=== PATIENT | female | born 1980 | race African-American/Black ===

== ENCOUNTER 2017-06-12 15:29 | Outpatient (CLI) | payer BC, MEDICAID ==
--- NOTE | 2017-06-12 16:21 | MMO ---
BILATERAL SCREENING MAMMOGRAM: INDICATION: Baseline exam. COMPARISON: None. FINDINGS: Interpretation of the exam was assisted with computer aided detection. The breast parenchyma is heterogeneously dense which limits the sensitivity of mammography. Coarse benign-appearing calcifications are present within the right breast. There is a small focal asymmetry seen within the right breast 9 o'clock position, middle depth, most conspicuous on the CC projection. No suspicious abnormality is seen of the left breast. IMPRESSION: BI-RADS category 0 - incomplete evaluation - need for additional evaluation. There is focal asymmetr y seen within the 9 o'clock position of the right mid breast in the CC projection predominantly. Rec ommend spot magnification compression view. BIRADS 0: Incomplete: Need Additional Imaging Evaluation and/or Prior Mammograms for Comparison POS: [facility]
== END 2017-06-12 15:30 | disposition home or self-care (01) ==
LOC: SCSMAMMO 15:29
PROVIDERS: ATTEND Family Medicine
DX: Z12.31 Encounter for screening mammogram for malignant neoplasm of breast (principal); N64.89 Other specified disorders of breast
CPT/HCPCS: 77067

== ENCOUNTER 2017-10-20 11:26 | Outpatient (CLI) | payer MEDICAID | END 2017-10-20 11:27 | disposition home or self-care (01) | LOC: BICMAMMO 11:26 | PROVIDERS: ATTEND Family Medicine | DX: R92.2 Inconclusive mammogram (principal) | CPT/HCPCS: G0279 ==

== ENCOUNTER 2019-06-30 18:28 | Emergency (ER) | payer OTHER, SELFPAY ==
[2019-06-30 19:23] LABS: Bacteria/HPF None Seen HPF (None Seen); Bilirubin Negative (Negative); Blood, Urine 2+ (Negative); Clarity Clear (Clear); Glucose, Urine (Dipstick) Normal (Negative); Leukocyte Negative Leu/uL (Negative); Nitrite Negative (Negative); Protein, Urine (Dipstick) Negative (Neg-Trace); Squamous Epithelial None Seen HPF (0-3); Urobilinogen Normal mg/dL (Less than 2); WBC/HPF 0-3 HPF (0-3)
[2019-06-30 19:59] LABS: #Basophils 0.1 thou/uL (0.0-0.2); #Eosinphils 0.1 thou/uL (0.0-0.7); #Lymphocytes 3.7 thou/uL (1.20-3.40); #Monocytes 0.7 thou/uL (0.11-0.59); #Neutrophils 4.3 thou/uL (1.40-6.50); %Basophils 1.3 % (0.0-1.0); %Eosinophils 0.8 % (0.0-10.0); %Lymphocytes 42.1 % (21.0-51.0); %Monocytes 7.5 % (0.0-10.0); %Neutrophils 48.3 % (42.0-75.0); Hemoglobin 12.3 g/dL (12.0-16.0); Mean Corpuscular HGB CONC 32.7 g/dL (32.0-36.0); Mean Corpuscular Hemoglobin 28.6 pg (27.0-31.0); Mean Corpuscular Volume 87.4 fL (78.0-98.0); Mean Platelet Volume 9.2 fL (7.4-10.4); Platelet Count 253 thou/uL (130-400); White Blood Cell (WBC) Count 8.8 thou/uL (4.8-10.8)
[2019-06-30 20:39] LABS: BHCG - Serum Negative (NEGATIVE); Pregs Control Background? CLEAR/WHITE (CLR/WHITE); Pregs Control Bar Appear? YES (CONTROL BAR)
[2019-06-30] MEDS ORDERED: Ketorolac Tromethamine 60 MG/2 ML VIAL ONE (20:41)
--- NOTE | 2019-06-30 21:43 | ULT ---
TRANSABDOMINAL TRANSVAGINAL PELVIC ULTRASOUND DATE:: 06/30/2019 9:07 PM CLINICAL HISTORY: Irregular vaginal bleeding. COMPARISON: None. TECHNIQUE: Grayscale, color Doppler and spectral Doppler images were obtained of the pelvis see a tra nsabdominal and transvaginal approach FINDINGS: UTERUS: Size: 10.3 x 6.2 x 5.6 cm Mass: There is diffuse heterogeneity of the uterus with multiple heterogeneous masses limiting visual ization of the endometrial canal. One of the more conspicuous masses is seen within the left aspect of the uterine body measuring 2.1 cm. One of the largest masses is seen within the anterior uterine f undus measuring 6.4 x 3.3 cm. Cervix: Not well seen Endometrial Thickness: 4.5 mm. OVARIES: Size: Right measures 2.6 x 1.9 x 2.5 cm; Left ovary not seen. Mass: None. Flow: Normal CUL-DE-SAC: Minimal free fluid IMPRESSION: Prominent heterogeneity of the uterus with hypoechoic intramural masses is suspicious for prominent f ibroid uterus. Nonvisualization of left ovary. Visualized right ovary is normal-appearing.
== END 2019-06-30 22:48 | disposition home or self-care (01) ==
LOC: ERS 18:28
DX: N93.8 Other specified abnormal uterine and vaginal bleeding (principal); D25.9 Leiomyoma of uterus, unspecified; F17.210 Nicotine dependence, cigarettes, uncomplicated
CPT/HCPCS: 36415; 76856; 81003; 81015; 84703; 85025; 96372; J1885

== ENCOUNTER 2023-02-20 15:56 | Emergency (ER) | payer BC ==
[2023-02-20 16:39] LABS: Hematocrit 41.7 % (36.0-47.0); Mean Corpuscular HGB CONC 31.2 g/dL (32.0-36.0); Mean Corpuscular Hemoglobin 25.5 pg (27.0-31.0); Mean Corpuscular Volume 81.8 fl (78.0-98.0); Mean Platelet Volume 11.6 fL (7.4-10.4); Platelet Count 358 10x3/uL (130-400); RBC Distribution Width 17.8 % (11.5-14.5)
[2023-02-20 16:41] LABS: Delete Auto Diff?? YES; Manual Diff?? YES
[2023-02-20] MEDS ORDERED: Ketorolac Tromethamine 30 MG/ML VIAL ONE (16:43)
[2023-02-20 17:03] LABS: Anisocytosis SLIGHT = 6-15 cells HPF (0-5); Burr Cells SLIGHT = 2-5 cells HPF (0-1); CellaVision Operator ID LAB.MJL; Elliptocytes SLIGHT = 2-5 cells HPF (0-1); Eosinophils 1 % (0-10); Hypochromia SLIGHT = 6-15 cells HPF (0-5); Lymphocytes 25 % (21-51); Monocytes 6 % (0-10); Neutrophil 67 % (42-75); Ovalocytes SLIGHT = 2-5 cells HPF (0-1); Platelet Adequacy Comment Platelets Normal; Poikilocytosis SLIGHT = 6-15 cells HPF (0-5); Polychromasia SLIGHT = 2-3 cells HPF (0-2); Reactive Lymphocytes 1 % (0-10); Total Cell Count 101
[2023-02-20 17:07] LABS: Troponin I Less than 0.010 ng/mL (< 0.028)
[2023-02-20 17:27] LABS: ALT (SGPT) 15 U/L (8-55); AST (SGOT) 22 U/L (5-34); Albumin 4.8 g/dL (3.5-5.0); Alkaline Phosphatase 65 U/L (40-110); Anion Gap 15 mmol/L (10-20); BUN (Urea Nitrogen) 8 mg/dL (7.0-18.7); Bilirubin, Total 0.9 mg/dL (0.2-1.2); Calc. Creatinine Clearance 0 mL/min (70-130); Calcium 9.5 mg/dL (7.8-10.44); Carbon Dioxide 22 mmol/L (22-29); Chloride 106 mmol/L (98-107); Estimated GFR 80; Globulin 3.6 g/dL (2.4-3.5); Glucose 72 mg/dL (70-105); Lipase 9 U/L (8-78); Potassium 4.4 mmol/L (3.5-5.1); Protein, Total 8.4 g/dL (6.0-8.3); Sodium 139 mmol/L (136-145)
== END 2023-02-20 17:56 | disposition home or self-care (01) ==
LOC: ERS 15:56
DX: R10.9 Unspecified abdominal pain (principal); F17.210 Nicotine dependence, cigarettes, uncomplicated
CPT/HCPCS: 71045; 74176; 80053; 83690; 84484; 85025; 85379; 93005; 96374; J1885

== ENCOUNTER 2023-07-02 18:32 | Emergency (ER) | payer BC ==
[2023-07-02 19:04] LABS: Hematocrit 39.6 % (36.0-47.0); Hemoglobin 12.7 g/dL (12.0-16.0); Manual Diff?? YES; Mean Corpuscular HGB CONC 32.1 g/dL (32.0-36.0); Mean Corpuscular Hemoglobin 26.3 pg (27.0-31.0); Mean Platelet Volume 11.5 fL (7.4-10.4); Platelet Count 270 10x3/uL (130-400); RBC Distribution Width 14.8 % (11.5-14.5); Red Blood Cell (RBC) Count 4.83 mill/uL (4.20-5.40); White Blood Cell (WBC) Count 7.7 10x3/uL (4.8-10.8)
[2023-07-02 19:05] LABS: Delete Auto Diff?? YES
[2023-07-02 19:12] LABS: BHCG - Serum Negative (NEGATIVE); Pregs Control Background? CLEAR/WHITE (CLR/WHITE); Pregs Control Bar Appear? YES (CONTROL BAR)
[2023-07-02 19:21] LABS: ALT (SGPT) 22 U/L (8-55); AST (SGOT) 28 U/L (5-34); Albumin 4.3 g/dL (3.5-5.0); Alkaline Phosphatase 62 U/L (40-110); Anion Gap 14 mmol/L (10-20); BUN (Urea Nitrogen) 9 mg/dL (7.0-18.7); Bilirubin, Total 0.6 mg/dL (0.2-1.2); Calc. Creatinine Clearance 0 mL/min (70-130); Carbon Dioxide 20 mmol/L (22-29); Chloride 106 mmol/L (98-107); Estimated GFR 85; Globulin 3.6 g/dL (2.4-3.5); Glucose 91 mg/dL (70-105); Lipase 13 U/L (8-78); Potassium 4.3 mmol/L (3.5-5.1); Protein, Total 7.9 g/dL (6.0-8.3); Sodium 136 mmol/L (136-145)
[2023-07-02 19:25] LABS: Troponin I Less than 0.010 ng/mL (< 0.028)
[2023-07-02 19:33] LABS: CellaVision Operator ID lab.dlt; Lymphocytes 35 % (21-51); Monocytes 12 % (0-10); Neutrophil 44 % (42-75); Ovalocytes SLIGHT = 2-5 cells HPF (0-1); Platelet Adequacy Comment Platelets Normal; Reactive Lymphocytes 7 % (0-10); Schistocytes SLIGHT = 2-5 cells HPF (0-1); Total Cell Count 100
== END 2023-07-02 20:54 | disposition home or self-care (01) ==
LOC: ERS 18:32
DX: R19.7 Diarrhea, unspecified (principal); R53.1 Weakness; R07.9 Chest pain, unspecified; F17.210 Nicotine dependence, cigarettes, uncomplicated; Z55.0 Illiteracy and low-level literacy
CPT/HCPCS: 71045; 80053; 83690; 84484; 84703; 85025; 93005